=== PATIENT | male | born 1995 | race Two or more races ===

== ENCOUNTER 2016-09-06 13:43 | Emergency (ER) | payer OTHER ==
[~2016-09-06] VITALS: Ht 170.2 cm; Wt 72.6 kg
[~2016-09-06 13:43] MED LIST: DIVA500T12 PO; LEVE500T22 PO
[2016-09-06] MEDS ORDERED: LORazepam 2MG/ML-1ML VIAL ONE (14:07)
[2016-09-06] MEDS ORDERED: LORazepam 2MG/ML-1ML VIAL IV ONE (14:15)
[2016-09-06 14:17] LABS: Basophils # (auto) 0 uL; Basophils % (auto) 0.2 % (0.0-2.0); Eosinophils # (auto) 0 uL; Eosinophils % (auto) 0.1 % (0.0-7.0); Lymphocytes # (auto) 1.4 uL; Lymphocytes % (auto) 7.5 % (10.0-50.0); Mean Corpuscular Hemoglobin 30.5 pg (28.0-32.0); Mean Corpuscular Hgb Conc. 34.7 g/dL (32.0-36.0); Mean Corpuscular Volume 88.1 fL (80.0-100.0); Monocytes # (auto) 0.5 uL; Monocytes % (auto) 2.7 % (0.0-12.0); Neutrophils # (auto) 16.4 uL; Neutrophils % (auto) 89.5 % (37.0-80.0); Platelet Count (auto) 315 10^3/uL (140-450); Red Cell Distribution Width 14.5 % (11.6-16.0); White Blood Cell 18.3 10^3/uL (4.4-10.8)
[2016-09-06 14:49] LABS: BUN/Creatinine Ratio 11.3; Bilirubin, Total 0.7 mg/dL (0.2-1.0); Calcium 8.4 mg/dL (8.5-10.1); Potassium 3.9 mmol/L (3.5-5.1); Total Protein 7.5 g/dL (6.4-8.2)
[2016-09-06 17:28] VITALS: BP 122/76
[2016-09-06] MEDS ORDERED: VALPROATE SOD 250 MG/5 ML ORAL SOLN PO ONE (17:45)
[2016-09-06 19:19] LABS: Urine Bilirubin Negative (Negative); Urine Blood Negative /uL (Negative); Urine Color Yellow (Yellow); Urine Glucose 1+ mg/dL (Normal); Urine Ketone Negative (Negative); Urine Nitrite Negative (Negative); Urine RBC <1 /hpf (0 - 3); Urine Urobilinogen Normal (Negative)
== END 2016-09-06 18:51 | disposition home or self-care (01) ==
LOC: EDBD 13:43 → EDSEX 13:43 → ER 13:45
DX: G40.909 Epilepsy, unspecified, not intractable, without status epilepticus (principal); R41.82 Altered mental status, unspecified; F17.210 Nicotine dependence, cigarettes, uncomplicated; F12.10 Cannabis abuse, uncomplicated; Z91.14 Patient's other noncompliance with medication regimen
CPT/HCPCS: 36415; 80053; 80164; 81001; 82542; 85025; 94761; 96374; 99284; J2060

== ENCOUNTER 2017-04-28 21:17 | Emergency (ER) | payer OTHER ==
[~2017-04-28] VITALS: Ht 170.2 cm; Wt 59.0 kg
[2017-04-28 21:38] VITALS: BP 132/80
[2017-04-28 22:24] LABS: Urine Bacteria None Seen /hpf (None Seen)
[2017-04-28 22:35] LABS: Urine Blood Negative /uL (Negative); Urine Specific Gravity 1.019 (1.001-1.035)
[2017-04-28 22:46] LABS: Basophils # (auto) 0 uL; Basophils % (auto) 0.3 % (0.0-2.0); Eosinophils # (auto) 0 uL; Eosinophils % (auto) 0.1 % (0.0-7.0); Hematocrit 42.6 % (41.0-53.0); Hemoglobin 15.2 g/dL (13.5-17.5); Lymphocytes # (auto) 3.2 uL; Lymphocytes % (auto) 29.4 % (10.0-50.0); Mean Corpuscular Hemoglobin 31.6 pg (28.0-32.0); Mean Corpuscular Hgb Conc. 35.6 g/dL (32.0-36.0); Monocytes % (auto) 9.1 % (0.0-12.0); Neutrophils # (auto) 6.6 uL; Neutrophils % (auto) 61.1 % (37.0-80.0); Nucleated Red Blood Cells % 0.1 %; Platelet Count (auto) 279 10^3/uL (140-450); Red Blood Cells 4.79 10^6/uL (4.5-5.90); Red Cell Distribution Width 14.3 % (11.8-14.3); White Blood Cell 10.8 10^3/uL (4.4-10.8)
[2017-04-28 22:58] LABS: Alcohol, Urine < 3.0 mg/dL (0-5); Amphetamine Screen, Urine NEGATIVE (NEGATIVE); Barbiturate Scree,Urine NEGATIVE (NEGATIVE); Benzodiazephine Screen, Urine NEGATIVE (NEGATIVE); Cannabinoid Screen, Urine POSITIVE (NEGATIVE); Cocaine Screen, Urine NEGATIVE (NEGATIVE); Opiate Scree,Urine NEGATIVE (NEGATIVE); Phencyclidine Screen, Urine NEGATIVE (NEGATIVE)
[2017-04-28 23:00] LABS: Urine Mucus FEW (None Seen); Urine WBC 2 /hpf (0 - 3)
[2017-04-28 23:06] LABS: BUN/Creatinine Ratio 10.7; Bilirubin, Total 0.4 mg/dL (0.2-1.0); Calcium 8.3 mg/dL (8.5-10.1); Potassium 3.5 mmol/L (3.5-5.1); Total Protein 7.4 g/dL (6.4-8.2)
== END 2017-04-29 03:01 | disposition left against medical advice (07) ==
LOC: ER 21:17
DX: R56.9 Unspecified convulsions (principal); Z53.21 Procedure and treatment not carried out due to patient leaving prior to being seen by health care provider
CPT/HCPCS: 36415; 70450; 72125; 80053; 80164; 80307; 81001; 85025

== ENCOUNTER 2018-10-26 00:45 | Emergency (ER) | payer OTHER ==
[~2018-10-26] VITALS: Ht 172.7 cm; Wt 68.0 kg
[2018-10-26 02:18] LABS: Basophils # (auto) 0 uL; Basophils % (auto) 0.4 % (0.0-2.0); Eosinophils # (auto) 0 uL; Eosinophils % (auto) 0.1 % (0.0-7.0); Hematocrit 41.7 % (41.0-53.0); Hemoglobin 14.6 g/dL (13.5-17.5); Lymphocytes # (auto) 2.5 uL; Lymphocytes % (auto) 30.5 % (10.0-50.0); Mean Corpuscular Hemoglobin 31.9 pg (28.0-32.0); Mean Corpuscular Hgb Conc. 35.1 g/dL (32.0-36.0); Monocytes # (auto) 0.9 uL; Monocytes % (auto) 11.2 % (0.0-12.0); Neutrophils # (auto) 4.7 uL; Neutrophils % (auto) 57.8 % (37.0-80.0); Nucleated Red Blood Cells % 0.1 %; Platelet Count (auto) 192 10^3/uL (140-450); Red Blood Cells 4.59 10^6/uL (4.5-5.90); Red Cell Distribution Width 13.8 % (11.8-14.3); White Blood Cell 8.2 10^3/uL (4.4-10.8)
[2018-10-26 02:45] LABS: Alanine Aminotransferase 64 U/L (16-61); Albumin 3.6 g/dL (3.4-5.0); Anion Gap 9 (5-15); Aspartate Aminotransferase 16 U/L (15-37); BUN/Creatinine Ratio 18.8; Blood Urea Nitrogen 16 mg/dL (7-18); Calcium 8.1 mg/dL (8.5-10.1); Carbon Dioxide 26 mmol/L (21-32); Chloride 107 mmol/L (98-107); GFR African American 144 mL/min; GFR Non-African American 119 mL/min; Glucose 103 mg/dL (74-106); Magnesium 2.1 mg/dL (1.6-2.6); Potassium 3.6 mmol/L (3.5-5.1); Sodium 142 mmol/L (136-145)
[2018-10-26 02:50] LABS: Alkaline Phosphatase 58 U/L (45-117); Bilirubin, Total 0.7 mg/dL (0.2-1.0); Total Protein 7.1 g/dL (6.4-8.2)
[2018-10-26 07:00] VITALS: BP 118/72
== END 2018-10-26 07:10 | disposition home or self-care (01) ==
LOC: ER 00:45 → EDBD 00:45 → ER 07:10
DX: R07.2 Precordial pain (principal); G40.909 Epilepsy, unspecified, not intractable, without status epilepticus; G43.A0 Cyclical vomiting, in migraine, not intractable; F12.10 Cannabis abuse, uncomplicated; F17.210 Nicotine dependence, cigarettes, uncomplicated; Z90.49 Acquired absence of other specified parts of digestive tract; Z79.899 Other long term (current) drug therapy
CPT/HCPCS: 36415; 70450; 71045; 80053; 80164; 82542; 83735; 84484; 85025; 93005

== ENCOUNTER 2019-03-03 00:26 | Emergency (ER) | payer OTHER ==
[~2019-03-03] VITALS: Ht 170.2 cm; Wt 68.0 kg
[2019-03-03 01:10] VITALS: BP 145/101
[2019-03-03 01:55] LABS: INR 1.12 (0.9-1.15); Partial Thromboplastin Time 29.3 sec (23.64-32.05)
[2019-03-03 02:01] LABS: Basophils # (auto) 0 uL; Basophils % (auto) 0.3 % (0.0-2.0); Eosinophils # (auto) 0.1 uL; Eosinophils % (auto) 0.9 % (0.0-7.0); Hematocrit 45.8 % (41.0-53.0); Hemoglobin 16.4 g/dL (13.5-17.5); Lymphocytes # (auto) 3.5 uL; Lymphocytes % (auto) 48.2 % (10.0-50.0); Mean Corpuscular Hemoglobin 31.4 pg (28.0-32.0); Mean Corpuscular Hgb Conc. 35.7 g/dL (32.0-36.0); Mean Corpuscular Volume 87.7 fL (80.0-100.0); Monocytes # (auto) 0.6 uL; Monocytes % (auto) 7.6 % (0.0-12.0); Neutrophils # (auto) 3.1 uL; Nucleated Red Blood Cells % 0.4 %; Platelet Count (auto) 306 10^3/uL (140-450); Red Blood Cells 5.22 10^6/uL (4.5-5.90); Red Cell Distribution Width 13.5 % (11.8-14.3); White Blood Cell 7.3 10^3/uL (4.4-10.8)
[2019-03-03 02:39] LABS: Blood Urea Nitrogen 14 mg/dL (7-18); Calcium 8.7 mg/dL (8.5-10.1); Chloride 106 mmol/L (98-107); Potassium 3.8 mmol/L (3.5-5.1); Sodium 137 mmol/L (136-145)
[2019-03-03 02:42] LABS: Alanine Aminotransferase 16 U/L (16-61); Albumin 3.8 g/dL (3.4-5.0); Anion Gap 7 (5-15); Aspartate Aminotransferase 11 U/L (15-37); BUN/Creatinine Ratio 17.3; Carbon Dioxide 24 mmol/L (21-32); GFR African American 151 mL/min; GFR Non-African American 124 mL/min; Glucose 92 mg/dL (74-106)
[2019-03-03 03:04] LABS: Alkaline Phosphatase 69 U/L (45-117); Bilirubin, Total 0.5 mg/dL (0.2-1.0); Total Protein 8.3 g/dL (6.4-8.2)
== END 2019-03-03 04:18 | disposition home or self-care (01) ==
LOC: ER 00:28
DX: R07.89 Other chest pain (principal); G40.909 Epilepsy, unspecified, not intractable, without status epilepticus; F12.10 Cannabis abuse, uncomplicated; F41.9 Anxiety disorder, unspecified
CPT/HCPCS: 36415; 71046; 80053; 84484; 85025; 85610; 85730; 93005